=== PATIENT | male | born 1950 | race Caucasian/White ===

== ENCOUNTER 2017-08-03 19:34 | Inpatient (IN) | payer OTHER ==
[2017-08-03] MEDS ORDERED: NS 1000 ML 1,000 ML IV ONE (19:47)
--- NOTE | 2017-08-03 19:49 | DR.GENAD ---
HPI - PCP Primary Care Physician: NFD - Complaint/Symptoms Chief Complaint Doctors Comments: Patient presented to the ED via EMS secondary to confusion. His son states that he is suppose to be on oxygen via BiPap but has not gotten the machine. He denies cigarette smoke. No recent infection. His initial ABG: ph 7.41 pco2 36 p02 54. He was placed on a non rebreather and patient oxygen saturations improved. Chief Complaint:: Confusion - Source History Provided: EMS - Mode of Arrival Mode of Arrival: EMS - Timing Onset of Chief Complaint: 08/03/17 PMH - PMH Past Medical History: Yes Past Medical History: CHF, Diabetes Past Surgical History: No Surgical History: Unknown - Family History History of Family Medical Conditions: No - Social History Does patient currently use any type of tobacco product: No Have you used tobacco products in the last 12 months: No Type of Tobacco Use: None Does any household member use tobacco: No Alcohol Use: None Do you use any recreational Drugs:: No Lives With: Alone Lives Where: Home - infectious screening In the last 2 months have you had wt loss of >10#?: NO Have you had fever, night sweats or hemotysis?: No Have you traveled outside the country in the last 6 months?: No Isolation: Standard ROS - Review of Systems Constitutional: negative: Diaphoresis Eyes: No Symptoms Reported ENTM: No Symptoms Reported Respiratoy: No Symptoms Reported Cardiovascular: No Symptoms Reported Gastrointestinal/Abdominal: No Symptoms Reported Genitourinary: No Symptoms Reported Neurological: No Symptoms Reported, Speech Problem Musculoskeletal: No Symptoms Reported, Leg (right swollen secondary to diabetes) Integumentary: No Symptoms Reported Hematologic/Lymphatic: No Symptoms Reported Endocrine: No Symptoms Reported Psychiatric: No Symptoms Reported All Other Systems: Reviewed and Negative PE - Vital Signs Vitals: Pulse Rate 22 Blood Pressure 150/84 O2 Sat by Pulse Oximetry 98 - General Limitations: No Limitations General Appearance: Alert, Lethargic - Head Head Exam: Normal Inspection, Atraumatic - Eyes Eye exam: Normal Appearance, PERRL, EOMI - ENT ENT Exam: Normal Exam External Ear Exam: Normal External Inspection TM/Canal Exam: Bilateral Normal Nose Exam: Normal Nose Exam Mouth Exam: Normal Inspection Throat Exam: Normal Inspection - Neck Neck Exam: Normal Inspection - Chest Chest Inspection: Normal Inspection - Respiratory Respiratory Exam: Normal Lung Sounds Bilat Respiratory Exam: Bilateral Clear to Auscultation - Cardiovascular Cardiovascular Exam: Regular Rate, Normal Rhythm - Abdominal Exam Abdominal Exam: Organomegaly (Protuberant) Abdominal Tenderness: negative: RUQ, RLQ, LUQ, LLQ, Epigastrium, Suprapubic, Diffuse, Mild, Moderate, Severe, Other - Extremities Extremities Exam: Edema (right lower) - Back Back Exam: Normal Inspection - Neurologic Neurological Exam: Alert, Oriented X3, CN II-XII Intact - Psychiatric Psychiatric Exam: Normal Affect, Normal Mood - Skin Skin Exam: Rash (Stasis dermatitis secondary to diabetes) Course - Reevaluation 1st: Improved - Consultation Called: 20:45 (Dr Atkins agreed to admit for further evaluation and treatment) ROR - Labs Reviewed Result Diagrams: 08/03/17 19:30 08/03/17 19:30 Laboratory: WBC 18.8 X10^3/uL (3.6-10.0) H 08/03/17 19:30 RBC 5.19 X10^6/uL (4.7-6.0) 08/03/17 19:30 Hgb 14.2 g/dL (13.5-18.0) 08/03/17 19:30 Hct 43.2 % (42.0-54.0) 08/03/17 19: MCV 83.2 fL (80.0-100.0) 08/03/17 19:30 MCH 27.3 pg (27.0-34.0) 08/03/17 19:30 MCHC 32.9 g/dL (33.0-35.0) L 08/03/17 19:30 RDW 15.9 % (11.6-16.5) 08/03/17 19:30 Plt Count 238 X10^3/uL (150.0-450.0) 08/03/17 19:30 MPV 7.4 fL (7.4-11.0) 08/03/17 19:30 Neut % 87.9 % (42.0-75.0) H 08/03/17 19:30 Lymph % 4.8 % (21.0-51.0) L 08/03/17 19: Stephens % 6.7 % (0.0-13.0) 08/03/17 19:30 Eos % 0.2 % (0.9-2.9) L 08/03/17 19:30 Baso % 0.4 % (0.2-1.0) 08/03/17 19:30 Neut # 16.5 x10^3/uL (2.2-4.8) H 08/03/17 19:30 Lymph # 0.9 X10^3/uL (1.3-2.9) L 08/03/17 19:30 Stephens # 1.3 x10^3/uL (0.3-0.8) H 08/03/17 19:30 Eos # 0.0 x10^3/uL (0.0-0.2) 08/03/17 19:30 Baso # 0.1 X10^3/uL (0.0-0.1) 08/03/17 19:30 Absolute Nucleated RBC 0.0 /100WBC 08/03/17 19:30 Sample Site Lr 08/03/17 22:01 ABG pH 7.390 (7.35-7.45) 08/03/17 22:01 ABG pCO2 37.0 mmHg (35.0-45.0) 08/03/17 22:01 ABG pO2 96.0 mmHg (80.0-100.0) 08/03/17 22:01 ABG HCO3 22.4 mmol/L (22-26) 08/03/17 22:01 ABG O2 Saturation 97.0 % (90-100) 08/03/17 22:01 ABG Base Excess -2.2 mmol/L (-2.0-2.0) L 08/03/17 22:01 Ryley Test Pos 08/03/17 22:01 A-a Gradient 107.0 mmHg 08/03/17 22:01 FiO2 35.000 08/03/17 22:01 Blood Gas Comments Emelia well ae 08/03/17 22:01 Sodium 137 mmol/L (136-145) 08/03/17 19:30 Corrected Sodium 142 mmol/L (136-145) 08/03/17 19:30 Potassium 3.7 mmol/L (3.5-5.1) 08/03/17 19:30 Chloride 102 mmol/L (98-107) 08/03/17 19:30 Carbon Dioxide 22.6 mmol/L (21-32) 08/03/17 19:30 BUN 25 mg/dL (7-18) H 08/03/17 19:30 Creatinine 1.57 mg/dL (0.70-1.30) H 08/03/17 19:30 Est GFR (MDRD) Af Amer 57 (>60) L 08/03/17 19:30 Est GFR (MDRD) Non-Af 47 (>60) L 08/03/17 19:30 Glucose 319 mg/dL (65-99) H 08/03/17 19:30 Calcium 8.5 mg/dL (8.5-10.1) 08/03/17 19:30 Corrected Calcium TNP 08/03/17 19:30 Total Bilirubin 0.40 mg/dL (0.2-1.0) 08/03/17 19:30 AST 21 Units/L (15-37) 08/03/17 19:30 ALT 34 Units/L (12-78) 08/03/17 19:30 Alkaline Phosphatase 86 Units/L (46-116) 08/03/17 19:30 Creatine Kinase 263 Units/L (39-308) 08/03/17 19:30 CK-MB (CK-2) 5.7 ng/mL (0-4.0) H* 08/03/17 19:30 CK/CKMB % Calc 2.2 % (<4) 08/03/17 19:30 Troponin I < 0.02 ng/mL (0-1.5) 08/03/17 19:30 C-Reactive Protein 17.80 mg/L (0-3.0) H 08/03/17 19:30 Total Protein 8.3 g/dL (6.4-8.2) H 08/03/17 19:30 Albumin 3.5 g/dL (3.4-5.0) 08/03/17 19:30 Globulin 4.8 g/dL (2.5-4.5) H 08/03/17 19:30 Albumin/Globulin Ratio 0.7 Ratio (1.1-2.1) L 08/03/17 19:30 - XRAY XRAY Interpreted by: Radiologist - Diagnosis Discharge Problem: Acute respiratory distress - Discharge Plan Condition: Stable - Follow ups/Referrals Follow ups/Referrals: NFD,None [Primary Care Provider] - 3 days - Instructions
[2017-08-03] MEDS ORDERED: NS 1000 ML 1,000 ML ONE (19:50)
[2017-08-03 19:58] LABS: ABG BASE EXCESS -1.4 mmol/L (-2.0-2.0); ABG HCO3 22.8 mmol/L (22-26)
[2017-08-03 19:59] LABS: ABG ALLEN TEST POS
[2017-08-03 20:06] LABS: BASOPHILS # (AUTO) 0.1 X10^3/uL (0.0-0.1); BASOPHILS % (AUTO) 0.4 % (0.2-1.0); EOSINOPHILS % (AUTO) 0.2 % (0.9-2.9); HEMATOCRIT 43.2 % (42.0-54.0); HEMOGLOBIN 14.2 g/dL (13.5-18.0); LYMPHOCYTES # (AUTO) 0.9 X10^3/uL (1.3-2.9); LYMPHOCYTES % (AUTO) 4.8 % (21.0-51.0); MEAN CORPUSCULAR HEMOGLOBIN 27.3 pg (27.0-34.0); MEAN CORPUSCULAR HGB CONC 32.9 g/dL (33.0-35.0); MEAN CORPUSCULAR VOLUME 83.2 fL (80.0-100.0); MEAN PLATELET VOLUME 7.4 fL (7.4-11.0); MONOCYTES # (AUTO) 1.3 x10^3/uL (0.3-0.8); MONOCYTES % (AUTO) 6.7 % (0.0-13.0); NEUTROPHILS # (AUTO) 16.5 x10^3/uL (2.2-4.8); NEUTROPHILS % (AUTO) 87.9 % (42.0-75.0); PLATELET COUNT 238 X10^3/uL (150.0-450.0); RED BLOOD COUNT 5.19 X10^6/uL (4.7-6.0); RED CELL DISTRIBUTION WIDTH 15.9 % (11.6-16.5); WHITE BLOOD COUNT 18.8 X10^3/uL (3.6-10.0)
[2017-08-03 20:25] LABS: BLOOD UREA NITROGEN 25 mg/dL (7-18); CALCIUM 8.5 mg/dL (8.5-10.1); CARBON DIOXIDE 22.6 mmol/L (21-32); CHLORIDE 102 mmol/L (98-107); COR NA(FOR HYPERGLY) 142 mmol/L (136-145); CREATININE 1.57 mg/dL (0.70-1.30); SODIUM 137 mmol/L (136-145); TROPONIN I < 0.02 ng/mL (0-1.5); eGFR BLACK RACES 57 (>60); eGFR NON BLACK RACES 47 (>60)
[2017-08-03 20:47] VITALS: BMI 39.8
[2017-08-03 20:47] LABS: ALANINE AMINOTRANSFERASE 34 Units/L (12-78); ALBUMIN 3.5 g/dL (3.4-5.0); ALKALINE PHOSPHATASE 86 Units/L (46-116); ASPARTATE AMINO TRANSFERASE 21 Units/L (15-37); CKMB % 2.2 % (<4); CREATINE KINASE 263 Units/L (39-308); TOTAL PROTEIN 8.3 g/dL (6.4-8.2)
[2017-08-03 20:52] LABS: CREATINE KINASE MB 5.7 ng/mL (0-4.0)
--- NOTE | 2017-08-03 21:55 | RAD ---
Chest, one-view Indication: Dyspnea, confusion Comparison: 03/27/2014 Findings: The heart is mildly enlarged. There is mild pulmonary vascular congestion and bilateral int erstitial prominence, suggestive for interstitial edema. No focal consolidation, significant effusion or pneumothorax is identified. No acute osseous abnormality is seen. Impression: Imaging findings suggestive for decompensated congestive heart failure, as above. Reported By:
[2017-08-03 22:06] LABS: ABG ALLEN TEST POS; ABG BASE EXCESS -2.2 mmol/L (-2.0-2.0); ABG HCO3 22.4 mmol/L (22-26)
[2017-08-03] MEDS ORDERED: ACETAMINOPHEN T PO PRN (22:17)
[2017-08-03] MEDS ORDERED: TRAMADOL HCL PO PRN (22:17)
[2017-08-03] MEDS ORDERED: [UNRECOGNIZED DRUG - OTHER] PO PRN (22:17)
[2017-08-03] MEDS: NS 1000 ML 1,000 ML IV SCH (22:54)
[2017-08-04 02:03] LABS: BILIRUBIN,URINE NEGATIVE (NEGATIVE); BLOOD/HEMOGLOBIN,URINE 4+ (NEGATIVE); GLUCOSE, URINE 3+ (NEGATIVE); KETONES,URINE NEGATIVE (NEGATIVE); LEUKOCYTE ESTERASE ,URINE NEGATIVE (NEGATIVE); NITRITES,URINE NEGATIVE (NEGATIVE); PROTEIN,URINE 4+ (NEGATIVE); UROBILINOGEN,URINE NORMAL (NORMAL)
[2017-08-04 02:11] LABS: AMORPHOUS SEDIMENT,UR 1+ /HPF (NEGATIVE); APPEARANCE,URINE SLIGHTLY HAZY (CLEAR); BACTERIA,URINE TRACE /HPF (NEGATIVE); COLOR,URINE YELLOW (YELLOW); MUCUS,URINE FEW /HPF (NEGATIVE); RBC,URINE 0-3 /HPF (NEGATIVE); SQUAMOUS EPITHELIAL CELL,UR FEW /HPF (NEGATIVE)
--- NOTE | 2017-08-04 05:27 | RAD ---
Chest, AP portable Indication: Shortness of breath Comparison: 08/03/2017 Findings: Cardiac silhouette enlargement and pulmonary vascular congestion are unchanged. There is mi nimal persistent interstitial thickening, improved from prior. No dense superimposed infiltrate or la rge effusion. There is mild right hemidiaphragm elevation. Impression: Cardiomegaly with improving edema. Reported By:
[2017-08-04] MEDS: HumuLIN R SUBCUT PRN ×4 (06:01→16:21)
[2017-08-04 06:07] LABS: BASOPHILS # (AUTO) 0.1 X10^3/uL (0.0-0.1); BASOPHILS % (AUTO) 0.4 % (0.2-1.0); HEMATOCRIT 40.4 % (42.0-54.0); HEMOGLOBIN 13.3 g/dL (13.5-18.0); LYMPHOCYTES # (AUTO) 1.6 X10^3/uL (1.3-2.9); LYMPHOCYTES % (AUTO) 5.6 % (21.0-51.0); MEAN CORPUSCULAR HEMOGLOBIN 27.8 pg (27.0-34.0); MEAN CORPUSCULAR VOLUME 84.1 fL (80.0-100.0); MEAN PLATELET VOLUME 7.9 fL (7.4-11.0); MONOCYTES # (AUTO) 1.3 x10^3/uL (0.3-0.8); MONOCYTES % (AUTO) 4.4 % (0.0-13.0); NEUTROPHILS % (AUTO) 89.6 % (42.0-75.0); PLATELET COUNT 268 X10^3/uL (150.0-450.0); RED BLOOD COUNT 4.81 X10^6/uL (4.7-6.0)
[2017-08-04 06:22] LABS: ALBUMIN 3.3 g/dL (3.4-5.0); CARBON DIOXIDE 21.7 mmol/L (21-32); COR CA(FOR HYPOALB) 8.6 mg/dL (8.5-10.1); CREATININE 1.74 mg/dL (0.70-1.30); TOTAL PROTEIN 8.3 g/dL (6.4-8.2)
[2017-08-04] MEDS ORDERED: ELIQUIS PO SCH (09:00)
[2017-08-04] MEDS ORDERED: LEVEMIR SCH (09:00)
[2017-08-04] MEDS: ASPIRIN EC 81 MG PO SCH (09:13)
[2017-08-04] MEDS: NS 1000 ML 1,000 ML IV SCH ×2 (09:13→12:09)
[2017-08-04] MEDS: BUSPAR PO SCH ×2 (09:13→21:27)
[2017-08-04] MEDS: NORVASC TAB 10 MG PO SCH (09:13)
[2017-08-04] MEDS: NORCO 7.5/325 MG TAB PO SCH (09:14)
[2017-08-04] MEDS: LEVEMIR SC SCH ×2 (09:15→21:44)
[2017-08-04] MEDS ORDERED: ULTRAM PO PRN (09:42)
[2017-08-04] MEDS ORDERED: TYLENOL 325 MG TAB PO PRN ×2 (09:42→10:00)
[2017-08-04] MEDS: LEVAQUIN PREMIX IV 750 MG 750 MG/150 ML BAG IV SCH (09:56)
[2017-08-04] MEDS: DUONEB 0.5 MG/3 MG NEB SCH ×2 (13:01→21:42)
--- NOTE | 2017-08-04 16:23 | VAS ---
HISTORY: Respiratory distress, lower extremity edema Study: Bilateral lower extremity venous Doppler Comparison: None Technique: Multiple grayscale sonographic images were obtained. Color duplex Doppler evaluation was p erformed. Findings: On the right, there is lack of phasicity and distal augmentation in the distal superficial femoral ve in. . On the left, there is lack of phasicity and distal augmentation in the distal superficial femor al vein. There is lack of flow in the superficial femoral veins distally and bilaterally. The examina tion is positive for deep venous thrombosis involving the distal superficial femoral veins bilaterall y. IMPRESSION: Exam positive for deep venous thrombosis in the distal superficial femoral veins bilaterally. Reported By:
[2017-08-04] MEDS ORDERED: HEPARIN SODIUM INJ 5000 UNITS IVP ONE (17:23)
[2017-08-04] MEDS: HEPARIN SODIUM IN D5W 25,000 UNITS/500 ML BAG IV PRN (18:12)
[2017-08-04] MEDS ORDERED: LIPITOR TAB 10 MG PO SCH (21:00)
[2017-08-04] MEDS ORDERED: FLEXERIL TAB 10 MG PO SCH (21:00)
[2017-08-05] MEDS: NS 1000 ML 1,000 ML IV SCH ×2 (01:59→14:10)
[2017-08-05] MEDS: DUONEB 0.5 MG/3 MG NEB SCH ×2 (05:19→14:02)
[2017-08-05] MEDS: HumuLIN R SUBCUT PRN ×2 (06:31→11:38)
[2017-08-05 06:58] LABS: ALANINE AMINOTRANSFERASE 34 Units/L (12-78); ALBUMIN 2.8 g/dL (3.4-5.0); ALKALINE PHOSPHATASE 68 Units/L (46-116); ASPARTATE AMINO TRANSFERASE 44 Units/L (15-37); BASOPHILS % (AUTO) 0.3 % (0.2-1.0); BLOOD UREA NITROGEN 21 mg/dL (7-18); CALCIUM 7.7 mg/dL (8.5-10.1); CARBON DIOXIDE 22.2 mmol/L (21-32); CHLORIDE 104 mmol/L (98-107); COR CA(FOR HYPOALB) 8.7 mg/dL (8.5-10.1); COR NA(FOR HYPERGLY) 140 mmol/L (136-145); CREATININE 1.36 mg/dL (0.70-1.30); EOSINOPHILS % (AUTO) 0.2 % (0.9-2.9); HEMATOCRIT 37.1 % (42.0-54.0); HEMOGLOBIN 12.3 g/dL (13.5-18.0); LYMPHOCYTES # (AUTO) 1.9 X10^3/uL (1.3-2.9); LYMPHOCYTES % (AUTO) 11.6 % (21.0-51.0); MEAN CORPUSCULAR HEMOGLOBIN 27.7 pg (27.0-34.0); MEAN CORPUSCULAR HGB CONC 33.1 g/dL (33.0-35.0); MEAN CORPUSCULAR VOLUME 83.6 fL (80.0-100.0); MEAN PLATELET VOLUME 7.8 fL (7.4-11.0); MONOCYTES # (AUTO) 1.1 x10^3/uL (0.3-0.8); MONOCYTES % (AUTO) 6.8 % (0.0-13.0); NEUTROPHILS # (AUTO) 13.4 x10^3/uL (2.2-4.8); NEUTROPHILS % (AUTO) 81.1 % (42.0-75.0); PLATELET COUNT 205 X10^3/uL (150.0-450.0); RED BLOOD COUNT 4.44 X10^6/uL (4.7-6.0); RED CELL DISTRIBUTION WIDTH 15.9 % (11.6-16.5); SODIUM 138 mmol/L (136-145); TOTAL PROTEIN 7.7 g/dL (6.4-8.2); WHITE BLOOD COUNT 16.5 X10^3/uL (3.6-10.0); eGFR BLACK RACES > 60 (>60); eGFR NON BLACK RACES 56 (>60)
--- NOTE | 2017-08-05 07:48 | RAD ---
Examination: Portable AP chest History: SOB Comparison reference 08/04/2017 Findings:Continued mild cardiac enlargement with central vascular congestion and suspect perivascular edema. No complicating consolidation, large pleural effusion or pneumothorax. Impression: No significant change since 1 day earlier. Reported By:
[2017-08-05] MEDS: LEVEMIR SC SCH (08:42)
[2017-08-05] MEDS: NORVASC TAB 10 MG PO SCH (08:43)
[2017-08-05] MEDS: BUSPAR PO SCH (08:43)
[2017-08-05] MEDS: ASPIRIN EC 81 MG PO SCH (08:43)
[2017-08-05] MEDS: NORCO 7.5/325 MG TAB PO SCH (08:44)
[2017-08-05] MEDS: HEPARIN SODIUM IN D5W 25,000 UNITS/500 ML BAG IV PRN (08:45)
[2017-08-05] MEDS: LEVAQUIN PREMIX IV 750 MG 750 MG/150 ML BAG IV SCH (08:45)
[2017-08-05] MEDS ORDERED: LASIX IVP ONE (11:09)
[2017-08-05] MEDS ORDERED: TEFLARO 600 MG in NS 100 ML IV + SPIKE MINIBAG* 100 ML IV SCH ×2 (13:00→21:00)
[2017-08-05] MEDS ORDERED: NS 100 ML IV + SPIKE MINIBAG* 100 ML IV ONE (14:05)
[2017-08-05] MEDS ORDERED: TEFLARO IV ONE (14:06)
[2017-08-05 15:18] VITALS: BP 147/65
== END 2017-08-05 15:55 | disposition short-term general hospital (02) | DRG 204 ==
LOC: ER 19:34 → ICU 22:13
PROVIDERS: ADMIT Internal Medicine; ATTEND Internal Medicine
DX: R06.03 Acute respiratory distress (principal); I82.413 Acute embolism and thrombosis of femoral vein, bilateral; E11.65 Type 2 diabetes mellitus with hyperglycemia; R41.82 Altered mental status, unspecified; I10 Essential (primary) hypertension; R06.02 Shortness of breath; J44.9 Chronic obstructive pulmonary disease, unspecified; J20.8 Acute bronchitis due to other specified organisms; I73.89 Other specified peripheral vascular diseases
CPT/HCPCS: 36415; 36600; 71010; 80053; 81001; 82550; 82553; 82803; 84484; 85025; 85610; 85730; 86140; 87040; 87502; 93970; 94640; 94660; 96365; 99231; 99238; 99283; 99284; A4216; A4222; A4618; A7030; 1956; J0712; J1644; J1815; J1940; J1956; J7620